=== PATIENT | female | born 1960 | race Caucasian/White ===

== ENCOUNTER 2016-04-14 18:09 | Emergency (ER) | payer OTHER, MEDICARE ==
--- NOTE | 2016-04-14 18:36 | UC ---
Abdominal Pain Female HPI - HPI Summary HPI Summary: 55 year old female complaining of constant, aching, cramping abdominal pain which worsens 30 minutes after eating making the pain "wrap around" and radiate around the left upper side to the left flank, feels nauseated 30 minutes after eating, x 2 weeks. Pain has not worsened since initial presentation and severe pain is not occurring more frequently. Pain located on the left side in between her upper and lower quadrant. Pain began Valentines day after eating sausage, biscuits, and gravy. Reports feeling bloated in her right and left upper quadrant, anorexia, decreased urine production, constipation "for days," ( earlier in the week but constipation has since resolved), had a BM today which, "looked really weird, it was a "pure yellow," formed stool. Surgical history of cholecystitis and appendectomy. PMHx of sarcoidosis, thyroid CA, fibromyalgia. Denies vomiting, fever, changes in urination, or injury to the abdomen. - History of Current Complaint Stated Complaint: STOMACH ACHE Time Seen by Provider: 04/14/16 18:27 Hx Obtained From: Patient ?: No Onset/Duration: Gradual Onset Severity Initially: Moderate Severity Currently: Moderate Pain Intensity: 7 Pain Scale Used: 0-10 Numeric Location: Diffuse - Left upper quadrant radiating to the left flank. Diffuse upper quadrant pain 30 minutes after meals Radiates: Yes Radiates to: Flank - Left flank Character: Aching, Colicy, Cramping, Tearing - When lying on the left side Aggravating Factor(s): Food - 30 minutes after meals Alleviating Factor(s): Nothing Associated Signs and Symptoms: Positive: Constipation, Urinary Symptoms - Decreased urination, Decreased Appetite, Nausea - develops 30 minutes after meals. Negative: Diaphoresis, Fever, Chest Pain, Dizzy, Blood in Stool, Vaginal Discharge, Vomiting - Risk Factors Ectopic Risk Factor: Negative Ovarian Torsion Risk Factor: Hysterectomy Allergies/Adverse Reactions: Allergies Allergy/AdvReac Type Severity Reaction Status Date / Time Azithromycin Allergy Severe Difficulty Verified 04/14/16 18:48 Breathing Hydromorphone [From Dilaudid] Allergy Severe Anaphylatic Verified 04/14/16 18:48 Shock Amoxicillin Allergy Intermediate Rash Verified 04/14/16 18:48 Aztreonam Allergy Intermediate ITCHING Verified 04/14/16 18:48 ALL OVER Cefaclor [From Ceclor] Allergy Intermediate Rash Verified 04/14/16 18:48 Cephalexin [From Keflex] Allergy Intermediate Rash Verified 04/14/16 18:48 Erythromycin Allergy Intermediate Rash Verified 04/14/16 18:48 Ibuprofen Allergy Intermediate RASH,CHEST Verified 04/14/16 18:48 AND FACE Levofloxacin [From Levaquin] Allergy Intermediate Rash Verified 04/14/16 18:48 Penicillins Allergy Intermediate Rash Verified 04/14/16 18:48 Sulfa Antibiotics Allergy Intermediate Rash Verified 04/14/16 18:48 Tetracycline Allergy Intermediate HEART Verified 04/14/16 18:48 RACING Hydrocodone [From [place]] AdvReac Intermediate stomach on Verified 04/14/16 18:42 fire PMH/Surg Hx/FS Hx/Imm Hx - Additional Past Medical History Additional PMH: hx of fibromyalgia Previously Healthy: Yes Endocrine History Of: Reports: Thyroid Disease - Thyroid CA Denies: Diabetes Cardiovascular History Of: Denies: Cardiac Disorders, Hypertension, Congestive Heart Failure Respiratory History Of: Denies: Asthma GI/ History Of: Reports: Gall Bladder Disease Denies: Gastroesophageal Reflux, Ulcer, Gastrointestinal Bleed, Kidney Stones , Diverticulitis, Renal Disease - Surgical History Surgical History: Yes Surgery Procedure, Year, and Place: S/P APPLY/RICK/HYSTER, 2 SX'S FOR THYROID CA, PT.STATES 4 FEMALE OPERATIONS, 2 FOR PELVIC ADHESIONS - Family History Known Family History: Positive: Other - Mother: Dementia Father: CVA age 81 - Social History Lives: With Family Alcohol Use: None Substance Use Type: None Smoking Status (MU): Former Smoker Have You Smoked in the Last Year: No When Did the Patient Quit Smoking/Using Tobacco: 42 - Immunization History Most Recent Influenza Vaccination: not this season Review of Systems Constitutional: Negative Skin: Negative Eyes: Negative ENT: Negative Respiratory: Negative Cardiovascular: Negative Gastrointestinal: Abdominal Pain, Other - Feeling nauseated 30 minutes after meals Genitourinary: Other - Decrease urine production Motor: Negative Neurovascular: Negative Musculoskeletal: Negative Neurological: Negative Psychological: Negative All Other Systems Reviewed And Are Negative: Yes Physical Exam Triage Information Reviewed: Yes Appearance: Pain Distress, Obese Vital Signs Reviewed: Yes Eye Exam: Normal Eyes: Positive: Conjunctiva Clear ENT Exam: Normal Dental Exam: Normal Neck exam: Normal Neck: Positive: Supple, Nontender, No Lymphadenopathy Respiratory: Positive: Chest non-tender, Lungs clear, Normal breath sounds, No respiratory distress Cardiovascular: Positive: RRR, No Murmur, Pulses Normal Abdomen Description: Positive: CVA Tenderness (R), Distended - Bilateral upper quadrants, Other: - Firmness palpated in the central upper abdomen. Tenderness when palpating over the RUQ or LUQ.. Negative: Pulsatile Mass Bowel Sounds: Positive: Hypoactive Musculoskeletal Exam: Normal Musculoskeletal: Positive: Strength Intact, ROM Intact Neurological Exam: Normal Neurological: Positive: Alert, Muscle Tone Normal Skin Exam: Normal Abd Pain Female Course/Dx - Differential Dx/Diagnosis Provider Diagnoses: Left upper abdominal pain of unknown etiology. 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 As discussed, seek immediate medical attention for any red flag signs and symptoms. Take daily Miralax, take the prescribed bentyl, and daily colace if not having a daily bowel movement. Increase water intake to more than 6-10 cups of water. Increase daily fiber (fruits, vegetables, and whole grain).
[2016-04-14 18:38] VITALS: BP 128/64
--- NOTE | 2016-04-14 19:53 | RAD ---
INDICATION: Abdominal bloating. Pain. COMPARISON: None TECHNIQUE: Erect and supine views of the abdomen are submitted. FINDINGS: Bones: There are no acute bony findings. Soft tissues: The soft tissues appear normal. The psoas margins are sharp. Bowel gas pattern: Normal Calcifications: There are no abnormal calcifications. Other: There are clips in the gallbladder fossa IMPRESSION: NO ACUTE PLAIN RADIOGRAPHIC FINDINGS.
== END 2016-04-14 20:11 | disposition home or self-care (01) ==
LOC: UCCORT 18:09
DX: R10.12 Left upper quadrant pain (principal); R10.13 Epigastric pain; E66.9 Obesity, unspecified; Z88.6 Allergy status to analgesic agent; Z88.1 Allergy status to other antibiotic agents; Z88.0 Allergy status to penicillin; Z88.2 Allergy status to sulfonamides; Z88.8 Allergy status to other drugs, medicaments and biological substances; Z90.49 Acquired absence of other specified parts of digestive tract; Z87.891 Personal history of nicotine dependence
CPT/HCPCS: 74020; 99212; G0463

== ENCOUNTER 2016-10-07 20:28 | Emergency (ER) | payer OTHER, MEDICARE ==
[2016-10-07 20:53] VITALS: BP 146/61
--- NOTE | 2016-10-07 21:29 | UC ---
Back Pain HPI - History of Current Complaint Chief Complaint: UCGU Stated Complaint: BACK/SIDE PAIN/URINARY SYMPTOMS Hx Obtained From: Patient ?: No Onset/Duration: Gradual Onset - low back pain bilaterally., Lasting Weeks - 1, Still Present Timing: Constant - but will get better and worse. Severity Initially: Mild Severity Currently: Moderate Back Pain: Is Discrete @ - middle lower back and some on the left side. Character: Unable to Describe Aggravating: Nothing - except eating seems to make it worse. Associated Signs And Symptoms: Positive: Abdominal Pain - tenderness and swollen., Flank Pain, Pain with Weight Bearing. Negative: Fever, Weakness, Numbness, Tingling, Bladder Incontinence, Bowel Incontinence - Risk Factors AAA Risk Factors: Negative TAD Risk Factors: Negative Cauda Equina Risk Factors: Negative Epidural Abscess Risk Factors: Negative - Allergies/Home Medications Allergies/Adverse Reactions: Allergies Allergy/AdvReac Type Severity Reaction Status Date / Time Azithromycin Allergy Severe Difficulty Verified 04/14/16 18:48 Breathing Hydromorphone [From Dilaudid] Allergy Severe Anaphylatic Verified 04/14/16 18:48 Shock Amoxicillin Allergy Intermediate Rash Verified 04/14/16 18:48 Aztreonam Allergy Intermediate ITCHING Verified 04/14/16 18:48 ALL OVER Cefaclor [From Ceclor] Allergy Intermediate Rash Verified 04/14/16 18:48 Cephalexin [From Keflex] Allergy Intermediate Rash Verified 04/14/16 18:48 Erythromycin Allergy Intermediate Rash Verified 04/14/16 18:48 Ibuprofen Allergy Intermediate RASH,CHEST Verified 04/14/16 18:48 AND FACE Levofloxacin [From Levaquin] Allergy Intermediate Rash Verified 04/14/16 18:48 Penicillins Allergy Intermediate Rash Verified 04/14/16 18:48 Sulfa Antibiotics Allergy Intermediate Rash Verified 04/14/16 18:48 Tetracycline Allergy Intermediate HEART Verified 04/14/16 18:48 RACING Acetaminophen [From Vicodin] Allergy Unknown GI Upset Verified 10/07/16 20:35 Hydrocodone [From Fortine] AdvReac Intermediate stomach on Verified 04/14/16 18:42 fire Home Medications: Home Medications Levothyroxine Sodium [Levoxyl] 150 mcg PO DAILY 10/07/16 [History Confirmed 02/11] PMH/Surg Hx/FS Hx/Imm Hx Endocrine History: Hypothyroidism Neurological History: Other - fibromyalgia Other Neurological History: fibromyalgia - Surgical History Surgical History: Yes Surgery Procedure, Year, and Place: S/P APPLY/RICK/HYSTER, 2 SX'S FOR THYROID CA, PT.STATES 4 FEMALE OPERATIONS, 2 FOR PELVIC ADHESIONS - Family History Known Family History: Positive: Cardiac Disease, Other - Mother: Dementia Father : CVA age 81 Negative: Hypertension, Diabetes - Social History Occupation: Disabled Lives: With Family Alcohol Use: None Substance Use Type: None Smoking Status (MU): Former Smoker Have You Smoked in the Last Year: No When Did the Patient Quit Smoking/Using Tobacco: 42 - Immunization History Most Recent Influenza Vaccination: not this season Review of Systems Genitourinary: Dysuria, Urgency Musculoskeletal: Myalgia All Other Systems Reviewed And Are Negative: Yes Physical Exam Triage Information Reviewed: Yes Appearance: Pain Distress, Obese Vital Signs: Initial Vital Signs Temp 97.4 F 10/07/16 20:37 Pulse 68 10/07/16 20:37 Resp 20 10/07/16 20:37 BP 146/61 10/07/16 20:37 Pulse Ox 98 10/07/16 20:37 Vital Signs Reviewed: Yes Eyes: Positive: Conjunctiva Clear Neck exam: Normal Respiratory Exam: Normal Cardiovascular Exam: Normal Musculoskeletal: Positive: ROM Limited @ - lumbothoracic spine, Other: - paraspinous muscular tenderness lower thoracic and upper lumbar spine. Neurological Exam: Normal Psychological Exam: Normal Skin Exam: Normal Back Pain Course/Dx - Differential Dx/Diagnosis Differential Diagnosis/HQI/PQRI: Herniated Disc, Strain, Sprain Provider Diagnoses: Low back pain, musculoskeletal Discharge - Discharge Plan Condition: Stable Disposition: HOME Prescriptions: Cyclobenzaprine TAB* [Flexeril 10 MG TAB*] 10 mg PO TID PRN #30 tab PRN Reason: Pain - Back Patient Education Materials: Acute Low Back Pain (ED), Flank Pain (ED), Fibromyalgia (ED), Cyclobenzaprine (By mouth)
[2016-10-07] MEDS ORDERED: Cyclobenzaprine TAB* 10 MG PO ONE (21:38)
== END 2016-10-07 21:50 | disposition home or self-care (01) ==
LOC: UCCORT 20:28
DX: M54.5 Low back pain (principal); R30.0 Dysuria; R39.15 Urgency of urination; M79.1 Myalgia; E03.9 Hypothyroidism, unspecified; E66.9 Obesity, unspecified; Z90.710 Acquired absence of both cervix and uterus; Z90.49 Acquired absence of other specified parts of digestive tract; Z88.5 Allergy status to narcotic agent; Z88.1 Allergy status to other antibiotic agents; Z88.6 Allergy status to analgesic agent; Z88.0 Allergy status to penicillin; Z88.2 Allergy status to sulfonamides; Z87.891 Personal history of nicotine dependence
CPT/HCPCS: 81003; 99211; A9270-GY; G0463

== ENCOUNTER 2017-09-14 08:40 | Emergency (ER) | payer OTHER, MEDICARE ==
[2017-09-14 09:06] VITALS: BP 135/72
--- NOTE | 2017-09-14 09:26 | RAD ---
INDICATION: Left wrist injury. TECHNIQUE: 3 views of the left wrist were obtained. FINDINGS: The bones are in normal alignment. No fracture is seen. Joint spaces appear maintained. IMPRESSION: NO EVIDENCE FOR FRACTURE. IF THE PATIENT'S SYMPTOMS PERSIST RECOMMEND FOLLOW-UP IMAGING.
--- NOTE | 2017-09-14 09:31 | UC ---
Hand/Wrist HPI - HPI Summary HPI Summary: left wrist pain x 2 days s/p fall , FOOSH injury , pain and swelling left radial wrist , - History Of Current Complaint Chief Complaint: UCUpperExtremity Stated Complaint: LEFT WRIST INJURY (FALL TUES) Time Seen by Provider: 09/14/17 08:59 Hx Obtained From: Patient Onset/Duration: Sudden Onset, Lasting Days - 2, Still Present Severity Initially: Moderate Severity Currently: Moderate Pain Intensity: 5 Character Of Pain: Aching Aggravating Factor(s): Movement, Lifting, Flexion, Extension Alleviating Factor(s): Rest, Ice Associated Signs And Symptoms: Positive: Swelling, Bruising, Weakness - Allergies/Home Medications Allergies/Adverse Reactions: Allergies Allergy/AdvReac Type Severity Reaction Status Date / Time amoxicillin Allergy Rash Verified 09/14/17 09:08 azithromycin Allergy Difficulty Verified 09/14/17 09:08 Breathing aztreonam Allergy Itching Verified 09/14/17 09:08 cefaclor [From Ceclor] Allergy Rash Verified 09/14/17 09:08 cephalexin [From Keflex] Allergy Rash Verified 09/14/17 09:08 erythromycin base Allergy Rash Verified 09/14/17 09:08 hydromorphone [From Dilaudid] Allergy Anaphylatic Verified 09/14/17 09:08 Shock ibuprofen Allergy Rash Verified 09/14/17 09:08 levofloxacin [From Levaquin] Allergy Rash Verified 09/14/17 09:08 Penicillins Allergy Rash Verified 09/14/17 09:08 Sulfa (Sulfonamide Allergy Rash Verified 09/14/17 09:08 Antibiotics) hydrocodone AdvReac GI Upset Verified 09/14/17 09:08 tetracycline AdvReac Tachycardia Verified 09/14/17 09:08 PMH/Surg Hx/FS Hx/Imm Hx - Additional Past Medical History Additional PMH: thyroid cancer Endocrine History: Thyroid Disease, Hypothyroidism - Surgical History Surgical History: Yes Surgery Procedure, Year, and Place: S/P APPLY/RICK/HYSTER, 2 SX'S FOR THYROID CA, PT.STATES 4 FEMALE OPERATIONS. 2 FOR PELVIC ADHESIONS - Family History Known Family History: Positive: Unknown, Cardiac Disease, Other - Mother: Dementia Father: CVA age 81 Negative: Hypertension, Diabetes - Social History Alcohol Use: None Substance Use Type: None Smoking Status (MU): Former Smoker Have You Smoked in the Last Year: No When Did the Patient Quit Smoking/Using Tobacco: 42 - Immunization History Most Recent Influenza Vaccination: not this season Review of Systems Constitutional: Negative Skin: Negative Eyes: Negative ENT: Negative Respiratory: Negative Cardiovascular: Negative Gastrointestinal: Negative Is Patient Immunocompromised?: No All Other Systems Reviewed And Are Negative: Yes Physical Exam Triage Information Reviewed: Yes Appearance: Well-Appearing, No Pain Distress, Well-Nourished Vital Signs: Initial Vital Signs Temp 96 F 09/14/17 09:00 Pulse 70 09/14/17 09:00 Resp 16 09/14/17 09:00 BP 135/72 09/14/17 09:00 Pulse Ox 99 09/14/17 09:00 Eye Exam: Normal Eyes: Positive: Conjunctiva Clear ENT: Positive: Normal ENT inspection, Hearing grossly normal, Pharynx normal Neck: Positive: Supple, Nontender, No Lymphadenopathy Respiratory: Positive: Chest non-tender, Lungs clear, Normal breath sounds Cardiovascular: Positive: RRR, No Murmur, Pulses Normal Musculoskeletal: Positive: Other: - left wrist : mild swelling, mild bruising , tenderness radial wirst , painfull ROM on flexion and extension Diagnostics - Laboratory Diagnostic Studies Completed/Ordered: left wrist : IMPRESSION: NO EVIDENCE FOR FRACTURE. IF THE PATIENT'S SYMPTOMS PERSIST RECOMMEND. FOLLOW-UP IMAGING. Hand/Wrist Course/Dx - Differential Dx/Diagnosis Provider Diagnoses: left wrist eliud Discharge - Sign-Out/Discharge Documenting (check all that apply): Patient Departure - Discharge Plan Condition: Stable Disposition: HOME Patient Education Materials: Wrist Sprain (ED) Referrals: Katty Ochoa MD [Primary Care Provider] - 7 Days - Billing Disposition and Condition Condition: STABLE Disposition: Home
== END 2017-09-14 09:37 | disposition home or self-care (01) ==
LOC: UCCORT 08:40
DX: S63.502A Unspecified sprain of left wrist, initial encounter (principal); W19.XXXA Unspecified fall, initial encounter; Y93.9 Activity, unspecified; Y92.9 Unspecified place or not applicable; Z88.1 Allergy status to other antibiotic agents; Z88.5 Allergy status to narcotic agent; Z88.0 Allergy status to penicillin; Z87.891 Personal history of nicotine dependence
CPT/HCPCS: 99212; G0463

== ENCOUNTER 2018-07-15 16:44 | Emergency (ER) | payer MEDICARE, OTHER ==
[2018-07-15 18:34] VITALS: BP 122/68
--- NOTE | 2018-07-15 18:44 | UC ---
General HPI - HPI Summary HPI Summary: 57 year old female presents with over 2 month history of bilateral shoulder pain. States she developed "cold-like" symptoms on 06/29/2018 including headache, malaise, fatigue, nasal congestion, and cough. Reports that symptoms subsided after a few days but the sore throat has persisted. States the pain in her shoulders has worsened since that time to the point where she cannot bring her arms over her head, has difficulty dressing, and lifting items. She has a very complex medication allergy history and her treatment has been limited to acetaminophen which has only provided limited relief. Has appointment with orthopedic surgery 07/23/2018. Denies fever, chills, injury, known tick bite, rash, chest pain, palpitations, SOB, diaphoresis, abdominal pain, N/V. - History of Current Complaint Chief Complaint: UCGeneralIllness Stated Complaint: BILATERAL SHOULDER PAIN,ST,UNDERARM PAIN Time Seen by Provider: 07/15/18 18:39 Hx Obtained From: Patient Pain Intensity: 5 - Allergy/Home Medications Allergies/Adverse Reactions: Allergies Allergy/AdvReac Type Severity Reaction Status Date / Time amoxicillin Allergy Rash Verified 07/15/18 18:30 azithromycin Allergy Difficulty Verified 07/15/18 18:30 Breathing aztreonam Allergy Itching Verified 07/15/18 18:30 cefaclor [From Ceclor] Allergy Rash Verified 07/15/18 18:30 cephalexin [From Keflex] Allergy Rash Verified 07/15/18 18:30 clindamycin Allergy Rash Verified 07/15/18 18:30 erythromycin base Allergy Rash Verified 07/15/18 18:30 hydromorphone [From Dilaudid] Allergy Anaphylatic Verified 07/15/18 18:30 Shock ibuprofen Allergy Rash Verified 07/15/18 18:30 levofloxacin [From Levaquin] Allergy Rash Verified 07/15/18 18:30 Penicillins Allergy Rash Verified 07/15/18 18:30 Sulfa (Sulfonamide Allergy Rash Verified 07/15/18 18:30 Antibiotics) sulfamethoxazole Allergy Rash Verified 07/15/18 18:30 [From Bactrim] trimethoprim [From Bactrim] Allergy Rash Verified 07/15/18 18:30 hydrocodone AdvReac GI Upset Verified 07/15/18 18:30 tetracycline AdvReac Tachycardia Verified 07/15/18 18:30 PMH/Surg Hx/FS Hx/Imm Hx - Additional Past Medical History Additional PMH: Fibromyalgia Endocrine History: Thyroid Disease Cancer History: Other - Thyroid cancer - Surgical History Surgical History: Yes Surgery Procedure, Year, and Place: S/P APPLY/RICK/HYSTER, 2 SX'S FOR THYROID CA, PT.STATES 4 FEMALE OPERATIONS. 2 FOR PELVIC ADHESIONS - Family History Known Family History: Positive: Unknown, Cardiac Disease, Other - Mother: Dementia Father: CVA age 81 Negative: Hypertension, Diabetes - Social History Occupation: Disabled Lives: With Family Alcohol Use: None Substance Use Type: None Smoking Status (MU): Former Smoker Have You Smoked in the Last Year: No When Did the Patient Quit Smoking/Using Tobacco: 42 - Immunization History Most Recent Influenza Vaccination: not this season Review of Systems All Other Systems Reviewed And Are Negative: Yes Constitutional: Positive: Fatigue. Negative: Fever, Chills Skin: Negative: Rash Eyes: Negative: Drainage, Eye Redness ENT: Positive: Sore Throat. Negative: Ear Ache, Nasal Discharge, Sinus Congestion, Sinus Pain/Tenderness Respiratory: Negative: Shortness Of Breath, Cough Cardiovascular: Negative: Palpitations, Chest Pain Gastrointestinal: Negative: Abdominal Pain, Vomiting, Diarrhea, Nausea Genitourinary: Positive: Negative Musculoskeletal: Positive: Other: - See HPI Neurological: Positive: Negative Is Patient Immunocompromised?: No Physical Exam - Summary Physical Exam Summary: GENERAL APPEARANCE: Well appearing, alert and cooperative, obese female who appears to be in no acute distress. EYES: Conjunctiva clear. No drainage. EARS: External auditory canals and tympanic membranes clear, hearing grossly intact. NOSE: No nasal discharge. THROAT: Pharynx normal No tonsilar inflammation, swelling, exudate, or lesions. Uvula midline. NECK: Neck supple, non-tender without lymphadenopathy. CARDIAC: Normal S1 and S2. No S3, S4 or murmurs. Rhythm is regular. There is no peripheral edema, cyanosis or pallor. Extremities are warm and well perfused. Capillary refill is less than 2 seconds. Peripheral pulses intact. LUNGS: Clear to auscultation without rales, rhonchi, wheezing or diminished breath sounds. ABDOMEN: Positive bowel sounds. Soft, nondistended, nontender. No guarding or rebound. No masses or hepatosplenomegally. MUSKULOSKELETAL: ROM intact to all extremities. No joint erythema or tenderness. Normal muscular development. Normal gait. BACK: Examination of the spine reveals normal gait and posture, no spinal deformity or tenderness, decreased range of motion or muscular spasm. EXTREMITIES: Generalized soft tissue tenderness to bilateral shoulders and upper arms. NEUROLOGICAL: Strength and sensation symmetric and intact throughout. SKIN: Skin normal color, texture and turgor with no lesions or eruptions. Triage Information Reviewed: Yes Vital Signs: Initial Vital Signs Temp 98.6 F 07/15/18 18:25 Pulse 70 07/15/18 18:25 Resp 18 07/15/18 18:25 BP 122/68 07/15/18 18:25 Pulse Ox 99 07/15/18 18:25 Vital Signs Reviewed: Yes Course/Dx - Course Course Of Treatment: 57 year old female presents with over 2 month history of bilateral shoulder pain. States she developed "cold-like" symptoms on 06/29/2018 including headache, malaise, fatigue, nasal congestion, and cough. Reports that symptoms subsided after a few days but the sore throat has persisted. States the pain in her shoulders has worsened since that time to the point where she cannot bring her arms over her head, has difficulty dressing, and lifting items. She has a very complex medication allergy history and her treatment has been limited to acetaminophen which has only provided limited relief. Has appointment with orthopedic surgery 07/23/2018. Denies fever, chills, injury, known tick bite, rash, chest pain, palpitations, SOB, diaphoresis, abdominal pain, N/V. Afebrile. VSS. Patient had a normal pharyngeal exam, no cervical lymphadenopthy , generalized soft tissue tenderness to bilateral shoulders and upper arms and otherwise unremarkable exam. Discussed with patient that there is a broad differential for her symptoms and with her complex history of adverse reactions to medications I am recommending that she continue to use acetaminophen at this time for pain control and that we obtain some lab work that she can have available for her appointment with orthopedic surgery including a CRP, Lyme test , and L[place]. I suspect that she may have PMR and would benefit from steroid therapy however I feel that she needs a more complete outpatient work up and follow up before starting therapy. She is to keep her appointment with orthopedic surgery and was encouraged to also follow up with her PCP. Anticipatory guidance and warning symptoms were reviewed with the patient. Verbalizes understanding and agrees with POC. - Differential Dx - Multi-Symptom Differential Diagnoses: Other - PMR, arthritis, Lyme, mononucleosis, fibromyalgia - Diagnoses Provider Diagnosis: Pharyngitis, Chronic pain of both shoulders Discharge - Sign-Out/Discharge Documenting (check all that apply): Patient Departure All imaging exams completed and their final reports reviewed: No Studies - Discharge Plan Condition: Stable Disposition: HOME Patient Education Materials: Pharyngitis (ED), Chronic Pain (ED) Referrals: Katty Ochoa MD [Primary Care Provider] - Additional Instructions: I do not have a good explanation for your persistent sore throat or chronic shoulder pain. We will check some blood work today to see if we can get some answers. We will be checking you for mononucleosis, Lyme disease, and check some inflammatory markers. Continue to use acetaminophen (Tylenol) according to directions as needed for pain. Keep your appointment with orthopedic surgery as scheduled. Seek immediate medical attention in the emergency room if you develop fever greater than 100.5 F, you are unable to swallow or develop drooling, have chest pain, difficulty breathing, or any worsening of symptoms. - Billing Disposition and Condition Condition: STABLE Disposition: Home - Attestation Statements Provider Attestation: Per institutional requirements, I have reviewed the chart, however, I was not consulted specifically or made aware of this patient by the midlevel provider. I did not personally evaluate, interact with , or disposition this patient.
[2018-07-17 20:25] LABS: EBV Capsid Ag IgG Ab Positive (Negative); EBV Capsid Ag IgM Ab Negative (Negative); Epstein-Barr Nuclear Antigen Positive (Negative)
== END 2018-07-15 19:30 | disposition home or self-care (01) ==
LOC: UCCORT 16:44
DX: M25.511 Pain in right shoulder (principal); M25.512 Pain in left shoulder; J02.9 Acute pharyngitis, unspecified; G89.29 Other chronic pain; Z87.891 Personal history of nicotine dependence; Z88.0 Allergy status to penicillin; Z88.1 Allergy status to other antibiotic agents; Z88.2 Allergy status to sulfonamides; Z88.5 Allergy status to narcotic agent
CPT/HCPCS: 36415; 86140; 86618; 86664; 86665; 99211; G0463